=== PATIENT | female | born 1980 | race Caucasian/White ===

== ENCOUNTER 2020-03-28 07:45 | Outpatient (CLI) | payer BC ==
[2020-03-28 14:24] LABS: Hemoglobin 13.8 g/dL (12.0-16.0); Mean Corpuscular Hemoglobin 31.4 PG (27.0-33.0); Mean Corpuscular Volume 89.5 fl (80.0-100.0); Mean Platelet Volume 9.1 fl (7.4-10.4); Platelet Count 357 10x3/uL (130-400); RBC Distribution Width 11.2 % (11.5-14.5); White Blood Cell (WBC) Count 6.5 10x3/uL (4.5-11.0)
[2020-03-28 14:26] LABS: BHCG - Serum Negative (NEGATIVE)
[2020-03-28 14:27] LABS: Pregs Control Background? CLEAR/WHITE (CLR/WHITE); Pregs Control Bar Appear? YES (CONTROL BAR)
[2020-03-28 23:45] LABS: SARS-CoV-2 MS2 Positive; SARS-CoV-2 N Gene Negative; SARS-CoV-2 S Gene Negative; SARS-CoV-2 by NAA Not Detected (NotDetected); SARS-CoV-2 orf1ab Negative
== END 2020-03-28 07:46 | disposition home or self-care (01) ==
LOC: LABBT 07:45
PROVIDERS: ATTEND Obstetrics & Gynecology
DX: Z01.812 Encounter for preprocedural laboratory examination (principal); N87.9 Dysplasia of cervix uteri, unspecified; Z20.828 Contact with and (suspected) exposure to other viral communicable diseases
CPT/HCPCS: 84703; 85027; 87635; U0003

== ENCOUNTER 2020-04-02 07:40 | Day surgery (SDC) | payer BC ==
--- NOTE | 2020-03-29 05:50 | HP ---
HISTORY OF PRESENT ILLNESS: Ms. Meeks is a 40-year-old white female, G4, P4, was having a long history of recurrent cervical dysplasia. She also has menorrhagia in the past, has been responsive to oral contraceptives, but the patient has significant hypertension issues and now recommending by her primary care doctor managing her hypertension to possibly get off the OCPs/oral contraceptives. She had a recent abnormal Pap again with a low-grade REZA, which a colposcopy was performed on 02/09/2020. Low-grade dysplasia again was persistent. She has had a recent workup for possible cause of secondary hypertension including a normal renal ultrasound of her renal arteries and she was requiring three different drug therapies for controlling her pressures. She has now been switched over to Edarbi 80 mg tablet daily, which seems to have improved and stabilized her blood pressure. Due to the multiple DIRECTOR OF RETAIL OPERATIONS issues, the patient is wanting definitive surgical therapy for the bleeding and also dysplasia. PAST MEDICAL HISTORY: As noted, the hypertensive disorder and recurrent low-grade cervical dysplasia. Also prior eating disorder in 2010, resolved. CURRENT MEDICATIONS: 1. 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 2. Edarbi 80 mg tablet daily for hypertension. 3. Taytulla OCP. FAMILY HISTORY: She has had a maternal grandmother with colon cancer. Both parents with hypertension. Also diabetes in the family and sudden cardiac in her maternal grandfather and grandmother. PAST SURGICAL HISTORY: She has had a previous diagnostic laparoscopy in 2008. Otherwise, negative. OB HISTORY: Four spontaneous vaginal deliveries. ALLERGIES: TO IMITREX AND LAMICTAL. PHYSICAL EXAMINATION: VITAL SIGNS: Today, her height 5 feet 2 inches, weight 134, BMI 24.5, blood pressure 110/80, pulse 79, respirations 18, and O2 saturation on room air 99%. HEENT: Within normal limits. CHEST: Clear to auscultation. HEART: Regular rate and rhythm. S1 and S2 heart sounds. No murmurs, rubs, or gallops. ABDOMEN: Soft, nontender, nondistended with no palpable masses. PELVIC: Vulva and vagina had no lesions. Cervix had no lesions visible but known biopsy low-grade. Uterus small and nontender. Adnexa nontender with no masses. ASSESSMENT: This is a 40-year-old white female, G4, P4, with recurrent cervical dysplasia, menorrhagia, on oral contraceptives with significant chronic hypertensive history. She is desiring definitive surgical therapy. Plan is for robotic total laparoscopic hysterectomy, bilateral salpingectomy for 04/02. Risks and benefits of procedure have been discussed in detail. Job ID: [id number]
[2020-04-01 11:26] VITALS: BMI 23.6
[2020-04-02] MEDS ORDERED: Gabapentin 300 MG CAP ONE (08:00)
[2020-04-02] MEDS ORDERED: CeleCOXIB 100 MG CAP ONE (08:00)
[2020-04-02] MEDS ORDERED: Famotidine/PF 20 mg/2ml Vial ONE (08:00)
[2020-04-02] MEDS ORDERED: SUGAMMADEX SODIUM 500 MG/5 ML VIAL ONE (08:19)
[2020-04-02] MEDS ORDERED: Fentanyl 100 MCG/2 ML VIAL ONE ×2 (08:19→11:00)
[2020-04-02] MEDS ORDERED: Bupivacaine 0.25% HCL 30 ML VIAL ONE (08:20)
[2020-04-02] MEDS ORDERED: Lidocaine 1% w/Epinephrine 1:100K 20 ML VIAL ONE (08:20)
[2020-04-02 09:29] LABS: Anion Gap 16 mmol/L (10-20); BUN (Urea Nitrogen) 9 mg/dL (7.0-18.7); Calc. Creatinine Clearance 68 mL/min (70-130); Calcium 9.2 mg/dL (7.8-10.44); Carbon Dioxide 23 mmol/L (22-29); Chloride 103 mmol/L (98-107); Glucose 95 mg/dL (70-105); Potassium 3.4 mmol/L (3.5-5.1); Sodium 139 mmol/L (136-145)
[2020-04-02] MEDS ORDERED: Metoprolol Tartrate 5 MG/5 ML VIAL ONE (09:30)
[2020-04-02] MEDS ORDERED: Rocuronium Bromide 10 MG/ML (10ML VIAL) ONE (09:30)
[2020-04-02] MEDS ORDERED: Lidocaine 1% PF 5 ML VIAL ONE (09:30)
[2020-04-02] MEDS ORDERED: Metoclopramide HCl 10 MG/2 ML VIAL ONE (09:30)
[2020-04-02] MEDS ORDERED: PROPOFOL 200 MG/20 ML VIAL ONE (09:30)
[2020-04-02] MEDS ORDERED: Ondansetron PF 4 MG/2 ML Vial ONE (09:30)
[2020-04-02] MEDS ORDERED: Esmolol 100 MG/10 ML VIAL ONE (09:30)
[2020-04-02] MEDS ORDERED: Dexamethasone 20 MG/5 ML VIAL ONE (09:30)
[2020-04-02] MEDS ORDERED: PHENYLEPHRINE-NS 100 MCG/ML 10 ML SYRINGE ONE (09:30)
[2020-04-02] MEDS ORDERED: Promethazine HCl 25 MG/ML VIAL IM PRN (10:56)
[2020-04-02] MEDS ORDERED: Meperidine HCl/PF 25 MG/ML VIAL SLOW IVP PRN (10:56)
[2020-04-02] MEDS ORDERED: Promethazine HCl 25 MG/ML VIAL SLOW IVP PRN (10:56)
[2020-04-02] MEDS ORDERED: Ondansetron HCl/PF 4 MG/2 ML Vial IVP PRN (10:56)
[2020-04-02] MEDS ORDERED: Meperidine HCl/PF 25 MG/ML VIAL ONE (11:03)
[2020-04-02] MEDS ORDERED: Ketorolac Tromethamine 30 MG/ML VIAL ONE ×2 (12:24→16:29)
--- NOTE | 2020-04-02 15:15 | OP ---
DATE OF PROCEDURE: 04/02/2020 PREOPERATIVE DIAGNOSES: 1. A 40-year-old white female G4, P4, with recurrent cervical dysplasia. 2. History of menorrhagia, on OCPs. 3. Chronic hypertension. 4. Desires definitive surgical therapy. POSTOPERATIVE DIAGNOSES: 1. A 40-year-old white female G4, P4, with recurrent cervical dysplasia. 2. History of menorrhagia, on OCPs. 3. Chronic hypertension. 4. Desires definitive surgical therapy. PROCEDURES PERFORMED: Robotic total laparoscopic hysterectomy and bilateral salpingectomies. FLOWER MAKER SURGEON: Miguelito Herring MD. ANESTHESIA: General endotracheal. ESTIMATED BLOOD LOSS: 25 mL. COMPLICATIONS: None. COUNTS: Correct x2. ANTIBIOTICS: 2 g Ancef on-call to OR with ERAS protocol. FINDINGS: 1. Normal-appearing bilateral fallopian tubes and ovaries. 2. Uterus is somewhat boggy in appearance, consistent with probable adenomyosis. 3. Clear urine present in Daly catheter and bladder was watertight to fluid distention over 300 mL postprocedure. 4. Bilateral ureteral peristalsis visualized postprocedure. DISPOSITION: Recovery room, stable. DESCRIPTION OF PROCEDURE: The patient previously received informed consent in regard to surgery. She was taken back to the operating room, where she received a general anesthetic agent without complications. She was placed in dorsal lithotomy position with use of Shekhar stirrups, prepped and draped in usual sterile fashion. Daly catheter was placed at this time. A side-arm speculum was placed in the vagina. Anterior lip of the cervix was grasped with a single-tooth tenaculum. The uterus was sounded to 7.5 cm. A size 6 cm ADDIE uterine manipulator with a 4.0 cm cup was placed. Tenaculum and speculum were removed. Attention was then turned to the abdomen, where the perspective trocar sites were infiltrated with 0.5% Marcaine with epinephrine. A 12 mm umbilical incision was made. Veress needle was entered in the peritoneal cavity with the patient's pressure less than 5 mm and insufflated to the patient's pressure of 15. Approximately 5 L of carbon dioxide gas were used. The Veress needle was removed. A size 12 mm trocar was placed, and the laparoscope was introduced through the trocar sleeve, confirming proper entry. Additional bilateral lower quadrant 8 mm operative trocars were placed under laparoscopic guidance along with the right upper quadrant 11 mm research assistant port. The patient was placed in Trendelenburg position and robot was docked. I broke scrub and proceeded to carry out the procedure from the operative console while my assistants remained at the bedside. The uterus was elevated with the manipulator and the previously mentioned findings were noted. The left fallopian tube was grasped by my research assistant, I Bovie cauterized and made defects in the mesosalpinx, cauterizing this area and then transecting the left fallopian tube with monopolar scissors. It was removed out through the right upper quadrant research assistant port. The left uterine ovarian ligament was then coagulated, transected, and serial coagulation of the broad ligament hugging close to uterus was carried out until the left round ligament was reached. It was coagulated and transected. The anterior leaf of the broad ligament was then entered and the vesicouterine peritoneum was incised in a layering technique, dissecting the bladder safely past the cervicovaginal margin. The uterine vessels on the left side were skeletonized and coagulated in the internal cervical os region with bipolar fenestrated cautery. This was carried out and repeated on the right side, again in similar fashion, the tube was grasped by my research assistant. The mesosalpinx was incised and cauterized and the tube was removed through the right upper quadrant port. The right ovarian ligament was coagulated and transected and serial coagulation of broad ligament again hugging close to the uterus was carried down until the right round ligament was reached. Again, it was coagulated, transected, and the anterior leaf of the broad ligament was entered. The vesicouterine peritoneum was dissected in layering technique, again, dropping the bladder safely past the cervicovaginal margins. The uterine vessels on the right side were skeletonized and coagulated in the internal cervical os region. The posterior colpotomy was then made, starting from 6 to 3 and 6 to 9 o'clock. We distended the bladder anteriorly prior to the anterior colpotomy, confirming it properly dissected past the cervicovaginal margin and it was confirmed. The anterior colpotomy was then completed from 12 to 3 and 12 to 9 o'clock. The specimen was removed in the vaginal vault. I had my monopolar scissors switched with a Kunal needle sales route driver and then I proceeded to coagulate the vaginal cuff any areas of bleeding with bipolar fenestrated cautery. My research assistant then brought in a Stratafix suture and I closed the vaginal cuff starting at the right angle full-thickness closure, crossed to the left angle and then back towards the right angle in a double-layer closure technique. The excess suture and needle were then removed through the right upper quadrant port. We then irrigated the pelvis. All the pedicle sites were inspected and noted to be hemostatic. The bilateral ureteral peristalsis continued to be apparent with the course of the ureters below the operative sites. The Daly catheter was draining clear urine. The robot was then undocked. The excess carbon dioxide gas was released from the abdomen. Trocar sleeves were removed. I then placed a deep stitch in [id number] stitch fashion in the fascial defect in the umbilicus. The remainder of the trocar sites were closed with 4-0 Monocryl and Dermabond. The vaginal vault was checked for hemostasis and was confirmed with the sponge stick. The patient was awakened from anesthesia, transferred to recovery room with plan for discharge home later today from Day Stay if she recovers well. Job ID: [id number]
[2020-04-02] MEDS ORDERED: traMADol HCl 50 MG TAB ONE (15:43)
== END 2020-04-02 17:00 | disposition home or self-care (01) ==
LOC: SDC 07:40
PROVIDERS: ATTEND Obstetrics & Gynecology
PROC: 0UT94ZZ Resection of Uterus, Percutaneous Endoscopic Approach (ICD-10-PCS; principal; 2020-04-02)
PROC: 0UT74ZZ Resection of Bilateral Fallopian Tubes, Percutaneous Endoscopic Approach (ICD-10-PCS; principal; 2020-04-02)
DX: N87.1 Moderate cervical dysplasia (principal); D25.9 Leiomyoma of uterus, unspecified; I10 Essential (primary) hypertension; Z79.899 Other long term (current) drug therapy; Z88.8 Allergy status to other drugs, medicaments and biological substances
CPT/HCPCS: 80048; 86850; 86900; 86901; 88307; J0690; J1100; J1885; J2175; J2405; J2704; J2765; J3010; S0020; S0028